=== PATIENT | female | born 1950 | race Caucasian/White ===

== ENCOUNTER 2021-01-16 02:41 | Emergency (ER) | payer OTHER, MEDICARE ==
[2021-01-16 06:45] LABS: BUN/CREATININE RATIO 26 (0-10)
== END 2021-01-16 08:54 | disposition home or self-care (01) ==
LOC: ER1 02:41
PROVIDERS: Student in an Organized Health Care Education/Training Program
DX: S10.93XA Contusion of unspecified part of neck, initial encounter (principal); S60.812A Abrasion of left wrist, initial encounter; I48.91 Unspecified atrial fibrillation; M06.9 Rheumatoid arthritis, unspecified; E11.9 Type 2 diabetes mellitus without complications; Z79.01 Long term (current) use of anticoagulants; F17.210 Nicotine dependence, cigarettes, uncomplicated; V49.40XA Driver injured in collision with unspecified motor vehicles in traffic accident, initial encounter; Y92.410 Unspecified street and highway as the place of occurrence of the external cause
CPT/HCPCS: 70450; 70498; 71045; 80053; 99284; Q9967